=== PATIENT | male | born 2000 ===

== ENCOUNTER 2021-01-25 17:32 | Outpatient (CLI) | payer BC ==
[2021-01-26 01:22] LABS: SARS-CoV-2 PCR by NAA Not Detected (NotDetected)
== END 2021-01-25 17:33 | disposition home or self-care (01) ==
LOC: LAB 17:32
PROVIDERS: ATTEND Family Medicine
DX: Z20.822 Contact with and (suspected) exposure to COVID-19 (principal)
CPT/HCPCS: U0003; U0005